=== PATIENT | male | born 1955 | race Caucasian/White ===

== ENCOUNTER 2019-05-24 10:40 | Emergency (ER) | payer BC ==
[2019-05-24 10:55] VITALS: BP 124/83; PULSE 68; O2SAT 96
[2019-05-24] MEDS ORDERED: Adacel Vial IM ONE ×2 (11:16→11:19)
--- NOTE | 2019-05-24 11:16 | ERPHSYRPT ---
- History of Present Illness Time Seen by Provider: 05/24/19 11:12 Source: patient Exam Limitations: no limitations Patient Subjective Stated Complaint: Finger injury/left hand, first digit hook in finger Triage Nursing Assessment: Patient ambulated back to ED and transferred self to bed. Patient A+O X 3. Patient's skin pink, warm and dry. Patient presents with fish hook in left hand, first digit. Patient denies pain or discomfort. Physician History: Finger injury/left hand, first digit hook in finger Timing/Duration: today Associated Symptoms: denies symptoms Allergies/Adverse Reactions: No Known Drug Allergies Allergy (Unverified 05/24/19 10:48) Hx Tetanus, Diphtheria Vaccination/Date Given: (unsure) Hx Influenza Vaccination/Date Given: Yes Immunizations Up to Date: Yes - Review of Systems Constitutional: No Symptoms Eyes: No Symptoms Ears, Nose, & Throat: No Symptoms All Other Systems: Reviewed and Negative - Past Medical History Pertinent Past Medical History: No Neurological History: No Pertinent History ENT History: No Pertinent History Cardiac History: No Pertinent History Respiratory History: No Pertinent History Endocrine Medical History: No Pertinent History Musculoskeletal History: No Pertinent History GI Medical History: No Pertinent History History: No Pertinent History Psycho-Social History: No Pertinent History Male Reproductive Disorders: No Pertinent History - Past Surgical History Past Surgical History: No Neuro Surgical History: No Pertinent History Cardiac: No Pertinent History Respiratory: No Pertinent History Gastrointestinal: No Pertinent History Genitourinary: No Pertinent History Musculoskeletal: No Pertinent History Male Surgical History: No Pertinent History - Social History Smoking Status: Never smoker Exposure to second hand smoke: No Drug Use: none Patient Lives Alone: No - Nursing Vital Signs Nursing Vital Signs: Initial Vital Signs Pulse Rate 68 05/24/19 10:49 Respiratory Rate 18 05/24/19 10:49 Blood Pressure 124/83 05/24/19 10:49 O2 Sat by Pulse Oximetry 96 05/24/19 10:49 Pain Scale Pain Intensity 0 - Physical Exam General Appearance: no apparent distress Extremity Exam: other (fish hook in left index finger) SpO2: 96 Procedures - Additional Procedures Progress: fish hook removed without any complication - Course Nursing assessment & vital signs reviewed: Yes - Progress Progress: improved Counseled pt/family regarding: diagnosis, need for follow-up - Departure Departure Disposition: Home Clinical Impression: Fish hook injury of finger of left hand Qualifiers: Encounter type: initial encounter Qualified Code(s): S69.92XA - Unspecified injury of left wrist, hand and finger(s), initial encounter Condition: Stable Critical Care Time: No Referrals: ALVA PEREZ MD [Primary Care Provider] - Instructions: Removal of Foreign Body in Skin, Foreign Body in Skin (DC) Prescriptions: Cephalexin Mh 500 mg [Keflex 500 mg] 500 mg PO Q6H #40 capsule
[2019-05-24] MEDS ORDERED: XYLOCAINE 1%/Epi 1:100000 MDV 20 ML ONE (11:18)
== END 2019-05-24 11:29 | disposition home or self-care (01) ==
LOC: ED 10:40
DX: S60.451A Superficial foreign body of left index finger, initial encounter (principal); W45.8XXA Other foreign body or object entering through skin, initial encounter; W20.8XXA Other cause of strike by thrown, projected or falling object, initial encounter; Y93.89 Activity, other specified
CPT/HCPCS: 90471; 90715; 99283